=== PATIENT | male | born 1990 | race Caucasian/White ===

== ENCOUNTER 2019-09-24 15:44 | Inpatient (IN) | payer OTHER ==
[2019-09-24] MEDS ORDERED: ASPIRIN 325 MG TAB PO STA (16:21)
--- NOTE | 2019-09-24 16:21 | ED ---
General Adult HPI - General Chief complaint: Neuro Symptoms/Deficit Stated complaint: numbness in right side Time Seen by Provider: 09/24/19 15:47 Source: patient, EMS, RN notes reviewed, old records reviewed (Reviewed records from [facility]) Mode of arrival: EMS Limitations: no limitations - History of Present Illness Initial comments: Patient is a pleasant 28-year-old male presenting to the emergency Department with complaints of paresthesias. Patient states symptoms started close to 2 weeks ago and were minimal on a couple of fingers of his right hand and toes of his right foot. Patient states yesterday symptoms started to progress. Patient states there is tingling stash cold sensation up to his right forearm and up to his right ankle. He should also has some symptoms of the right side of his face. Patient did go to [facility] and had computed tomography scan of his head and neck done. Patient was transferred here for neurology evaluation. They did discuss case with Dr. Retana who did accept case however patient was sent to emergency department secondary to no beds in the hospital. Patient is questionable if there may be some mild generalized weakness. Review of Systems ROS Statement: Those systems with pertinent positive or pertinent negative responses have been documented in the HPI. ROS Other: All systems not noted in ROS Statement are negative. Constitutional: Denies: fever Eyes: Denies: eye pain ENT: Denies: ear pain Respiratory: Denies: dyspnea Cardiovascular: Denies: chest pain Endocrine: Reports: fatigue Gastrointestinal: Denies: abdominal pain Genitourinary: Denies: dysuria Musculoskeletal: Denies: back pain Skin: Denies: rash Neurological: Reports: as per HPI, paresthesias Past Medical History Past Medical History: No Reported History, Asthma Additional Past Medical History / Comment(s): Seizure at age 12/treated with Keppra x1 year. History of Any Multi-Drug Resistant Organisms: None Reported Past Surgical History: Appendectomy, Ear Surgery, Tonsillectomy Additional Past Surgical History / Comment(s): Left ankle pins. Past Psychological History: No Psychological Hx Reported Smoking Status: Never smoker Past Alcohol Use History: Occasional Past Drug Use History: Marijuana General Exam Limitations: no limitations General appearance: alert, in no apparent distress Head exam: Present: normocephalic Eye exam: Present: normal appearance, PERRL, EOMI ENT exam: Present: normal oropharynx Neck exam: Present: normal inspection Respiratory exam: Present: normal lung sounds bilaterally Cardiovascular Exam: Present: regular rate, normal rhythm GI/Abdominal exam: Present: soft. Absent: tenderness Extremities exam: Present: normal inspection Neurological exam: Present: alert, oriented X3, CN II-XII intact (Except possible decreased sensation right maxillary region.). Absent: motor sensory deficit Expanded Neurological exam: Present: protecting the airway Speech: Present: fluid speech Cranial nerves: EOM's Intact: Normal, Facial Sensation: Abnormal Right (Patient states there may be some slight decreased sensation right maxillary region) Cerebellar function: Finger to Nose: Normal Sensory exam: Upper Extremity Light Touch: Normal, Lower Extremity Light Touch: Normal Motor strength exam: RUE: 5, LUE: 5, RLE: 5, LLE: 5 Eye Response: (4) open spontaneously Motor Response: (6) obeys commands Verbal Response: (5) oriented Psychiatric exam: Present: normal affect, normal mood Skin exam: Present: normal color Course Vital Signs 09/24/19 09/24/19 15:53 16:01 Temperature 98.4 F 98.4 F Pulse Rate 95 95 Respiratory 18 18 Rate Blood Pressure 142/96 142/96 O2 Sat by Pulse 97 97 Oximetry Medical Decision Making - Medical Decision Making Case was discussed with Dr. Retana who confirms he did accept transfer and will admit patient. He will come evaluate. Patient will need to be seen by neurology for paresthesias versus mild sensory changes. Disposition Clinical Impression: Paresthesia Disposition: ADMITTED IP TO THIS [facility] Is patient prescribed a controlled substance at d/c from ED?: No Referrals: None,Stated [Primary Care Provider] - 1-2 days Decision Time: 16:21
[2019-09-24] MEDS: SODIUM CHLORIDE 0.9% 1,000 ML IV SCH (16:56)
--- NOTE | 2019-09-24 17:51 | P.HPIM ---
History of Present Illness This is a pleasant 28-year-old gentleman came in with complaints of tingling and numbness has been going on in the right fifth finger and dry 52 for about couple weeks and his tingling numbness numbness in the to extended up to the right ankle and in the hand extending up to the elbow along with some tingling numbness on the right side of the face involving V2 and V3 segments of the trigeminal nerve area. Patient denied any nausea vomiting headache seizure-like activity denied any history of migraine. Denied any other weakness photophobia denied any nuchal rigidity, neck pain denied any fever or flulike symptoms. Patient also felt short of breath upon ambulation although he saturating 100% at this time be tachycardic but probably not abnormal for his size. Around 100 sinus tachycardia Review of Systems REVIEW OF SYSTEMS: CONSTITUTIONAL: No fever, no malaise, no fatigue. HEENT: No recent visual problems or hearing problems. Denied any sore throat. CARDIOVASCULAR: No chest pain, orthopnea, PND, no palpitations, no syncope. PULMONARY: No shortness of breath, no cough, no hemoptysis. GASTROINTESTINAL: No diarrhea, no nausea, no vomiting, no abdominal pain. NEUROLOGICAL: No headaches, no weakness. HEMATOLOGICAL: Denies any bleeding or petechiae. GENITOURINARY: Denies any burning micturition, frequency, or urgency. MUSCULOSKELETAL/RHEUMATOLOGICAL: Denies any joint pain, swelling, or any muscle pain. ENDOCRINE: Denies any polyuria or polydipsia. The rest of the 14-point review of systems is negative. Past Medical History Past Medical History: No Reported History, Asthma Additional Past Medical History / Comment(s): Seizure at age 12/treated with Keppra x1 year. History of Any Multi-Drug Resistant Organisms: None Reported Past Surgical History: Appendectomy, Ear Surgery, Tonsillectomy Additional Past Surgical History / Comment(s): Left ankle pins. Past Psychological History: No Psychological Hx Reported Smoking Status: Never smoker Past Alcohol Use History: Occasional Past Drug Use History: Marijuana Medications and Allergies Home Medications Medication Instructions Recorded Confirmed Type No Known Home Medications 09/24/19 09/24/19 History Allergies Allergy/AdvReac Type Severity Reaction Status Date / Time cefaclor [From Ceclor] Allergy Rash/Hives Verified 09/24/19 17:12 clarithromycin [From Biaxin] AdvReac Nausea & Verified 09/24/19 17:12 Vomiting Physical Exam Vitals: Vital Signs Temp Pulse Resp BP Pulse Ox 09/24/19 17:01 101 H 18 147/85 98 09/24/19 16:01 98.4 F 95 18 142/96 98 09/24/19 15:53 98.4 F 95 18 142/96 97 Intake and Output 09/24/19 09/24/19 09/24/19 06:59 14:59 22:59 Other: Weight 185.973 kg PHYSICAL EXAMINATION: GENERAL: The patient is alert and oriented x3, not in any acute distress. Morbidly obese HEENT: Pupils are round and equally reacting to light. EOMI. No scleral icterus. No conjunctival pallor. Normocephalic, atraumatic. No pharyngeal erythema. No thyromegaly. CARDIOVASCULAR: S1 and S2 present. No murmurs, rubs, or gallops. PULMONARY: Chest is clear to auscultation, no wheezing or crackles. ABDOMEN: Soft, nontender, nondistended, normoactive bowel sounds. No palpable organomegaly. MUSCULOSKELETAL: No joint swelling or deformity. EXTREMITIES: No cyanosis, clubbing, or pedal edema. NEUROLOGICAL: Gross neurological examination did not reveal any focal deficits. SKIN: No rashes. Assessment and Plan Plan: -Tingling and numbness in the above-mentioned areas: Symptomatology is not really consistent with hannah sensory stroke, possibly of emesis is also extremely low neurology will be consulted will do the stroke workup patient will be continued on aspirin will also obtain lipid panel carotid Doppler and echocardiogram leave the decision of MRI to neurology although etiology of his symptoms is not clear at this time -Obesity: Counseling was provided with also rule out hyperlipidemia -Symptoms of shortness of breath saturating well 100% although bit tachycardic tachycardias with obesity and also a TSH level for tomorrow his symptoms of shortness of breath at this time resolved with the subjective symptoms are probably related to anxiety. -DVT prophylaxis early ambulation
--- NOTE | 2019-09-24 17:51 | US ---
EXAMINATION TYPE: US carotid duplex BILAT DATE OF EXAM: 09/24/2019 COMPARISON: NONE CLINICAL HISTORY: Stenosis. right facial, arm and foot numbness, no h/o stroke EXAM MEASUREMENTS: RIGHT: Peak Systolic Velocity (PSV) cm/sec ----- Right CCA: 78.8 ----- Right ICA: 65.2 ----- Right ECA: 60.3 ICA/CCA ratio: 0.8 RIGHT: End Diastole cm/sec ----- Right CCA: 22.1 ----- Right ICA: 27.5 ----- Right ECA: 14.7 LEFT: Peak Systolic Velocity (PSV) cm/sec ----- Left CCA: 74.4 ----- Left ICA: 100.4 ----- Left ECA: 96.2 ICA/CCA ratio: 1.3 LEFT: End Diastole cm/sec ----- Left CCA: 23.8 ----- Left ICA: 49.8 ----- Left ECA: 10.7 VERTEBRALS (direction of flow): Right Vertebral: Antegrade Left Vertebral: Antegrade Rhythm: Normal Mild homogeneous plaque with no significant stenosis seen IMPRESSION: There is antegrade flow in the vertebral arteries. The images and measurements suggest less than 10% stenosis in both internal carotid arteries. Criteria for Assigning % of Stenosis / Diameter reduction (Estimation based on the indirect measurements of the internal carotid artery velocities (ICA PSV). 1. Normal (no stenosis)=ICA PSV < 125 cm/s: ratio < 2.0: ICA EDV<40 cm/s. 2. Less than 50% stenosis=ICA PSV < 125 cm/s: ratio < 2.0: ICA EDV<40 cm/s. 3. 50 to 69% stenosis=ICA PSV of 125 to 230 cm/s: ration 2.0 ? 4.0: ICA EDV 40-100 cm/s. 4. Greater than 70% stenosis to near occlusion= ICA PSV > 230 cm/s: ratio > 4.0: ICA EDV > 100 cm/s. 5. Near occlusion= ICA PSV velocities may be low or undetectable: variable ratio and ICA EDV. 6. Total occlusion=unable to detect flow.
[2019-09-25] MEDS: SODIUM CHLORIDE 0.9% 1,000 ML IV SCH ×2 (04:29→15:56)
[2019-09-25] MEDS ORDERED: ASPIRIN 325 MG TAB PO SCH (09:00)
--- NOTE | 2019-09-25 10:25 | P.CNNES ---
History of Present Illness Consult date: 09/24/19 Requesting physician: Bam Shelton Reason for Consult: Right-sided paresthesia, evaluate for sensory deficits History of Present Illness: Patient is a 28-year-old male, otherwise healthy, states that about 2 weeks ago he developed tingling in the right little finger and tip of the right ring finger. The symptoms persisted. On 09/19/2019, patient developed numbness of the big toe of the right foot. Just yesterday in the afternoon, the whole right foot became numb, and the right hand also got affected all the way to the elbow with numbness and tingling. He also noticed right side of the face and chin to the head felt numb. His symptoms got worse this morning therefore he decided to come to the ER. He also feels cold sensation in the right arm and leg. Patient denies any weakness of his right arm or right leg or any problem with the balance. Patient denies any history of diabetes, no alcohol or tobacco and drinks alcohol very rarely. Patient's paternal grandfather was diagnosed with neuropathy in the feet, but was related to back issues. No family history of MS. Patient denies any symptoms of transient neurological deficits like optic neuritis, vertigo. He states that about 2 years ago he noticed some weakness in the legs bilaterally, that lasted for a couple days. There was no numbness or tingling with it. He attributed the weakness to performing a lot of training at the gym. The symptoms went away. Review of Systems Completely unremarkable, except as above. Denies any chest pain, problem with the vision was so sore throat dysphagia. Denies any nausea vomiting diarrhea, shortness of breath. Patient does have mild occasional low back pain but without any radiation. Denies any problem with bowel or bladder control. Past Medical History Past Medical History: No Reported History, Asthma Additional Past Medical History / Comment(s): Seizure at age 12/treated with Keppra x1 year. History of Any Multi-Drug Resistant Organisms: None Reported Past Surgical History: Appendectomy, Ear Surgery, Tonsillectomy Additional Past Surgical History / Comment(s): Left ankle pins. Past Psychological History: No Psychological Hx Reported Smoking Status: Never smoker Past Alcohol Use History: Occasional Past Drug Use History: Marijuana Medications and Allergies Home Medications Medication Instructions Recorded Confirmed Type No Known Home Medications 09/24/19 09/24/19 History Allergies Allergy/AdvReac Type Severity Reaction Status Date / Time cefaclor [From Ceclor] Allergy Rash/Hives Verified 09/24/19 17:12 clarithromycin [From Biaxin] AdvReac Nausea & Verified 09/24/19 17:12 Vomiting Physical Examination - Vital Signs Vital Signs: Vital Signs Temp Pulse Resp BP Pulse Ox 09/24/19 17:01 101 H 18 147/85 98 09/24/19 16:01 98.4 F 95 18 142/96 98 09/24/19 15:53 98.4 F 95 18 142/96 97 Intake and Output 09/24/19 09/24/19 09/24/19 06:59 14:59 22:59 Other: Weight 185.973 kg On examination patient is a young male, in no distress. Patient is mild to moderately obese. Patient's mental status, speech and language functions are normal. Attention and concentration fund of knowledge is adequate. On cranial nerve examination pupils are round and reacting to light, visual hannah are full, extraocular muscles are intact with no nystagmus. Face is symmetric and tongue protrudes the midline. Palatal elevation sensation normal. On muscle strength testing patient has a right pronation, no drift. The strength is completely normal in the arms and legs distally and proximally. Reflexes are 2 in the upper limbs, 2+ at the knees, 1+ ankles and plantars are downgoing. Sensory to temperature was slightly decreased in the left side of the face and left arm but was equal in the legs. Sensory to touch revealed tingling sensation in the right side of the face and arm. No ataxia for [id number] testing. Tone and bulk of muscles normal. No carotid bruit or murmur, peripheral pulses present. Assessment and Plan Assessment: * 28-year-old male admitted with numbness, paresthesias involving right side of the body. Started out with symptoms in the right little finger 2 weeks ago but now has progressed to involve the right arm, right foot and right side of the face. Examination only shows slight sensory disturbance. Rule out demyelinating disease, like multiple sclerosis, given young age. Plan: * Patient will undergo MRI of the brain with and without contrast to evaluate for demyelinating disease like MS. * We will check B12, folate, MMA, Lyme, GLADIS, vitamin D, vitamin B6. * Further management will be based upon MRI results.
--- NOTE | 2019-09-25 11:43 | MR ---
EXAMINATION TYPE: MR brain wo/w con DATE OF EXAM: 09/25/2019 COMPARISON: 09/24/2019 CT brain HISTORY: Numbness,? Possible MS CONTRAST: Performed utilizing 20 mL intravenous Gadavist gadolinium contrast. TECHNIQUE: Multiplanar, multisequence imaging of the brain is performed on a 3.0 Natalia magnet. Demye linating disease protocol with additional Sagittal Flair sequence is performed. Study is performed wi thin 24 hours of arrival to the hospital. FINDINGS: T2 White Matter Lesions Present : Yes Approximate Number of Lesions: Approximately 5 Locations Identified : Right periventricular, left thalamus, bilateral centrum semiovale Size of Largest Lesion(s): 1. 1.0 x 0.8 x 1.1 cm. Location: Right periventricular Sequence 501 Image 22 (axial) and Sequence 60 1 Image 25 (sagittal). 2. 0.5 x 0.7 x 1.2 cm. Location: Left thalamus Sequence 501 Image 18 (axial) and Sequence 601 Image 13 (sagittal). This is the acute signal change. This has some central contents enhancement. Enhancing Lesion(s) Present: Yes reference lesion number 2 delineated above. Change from Prior: White matter changes are identified on the MRI is not apparent on the CT examinati on. Diffusion-weighted imaging is performed. There is some hyperintensity posterior to the posterior machado b of the internal capsule within the left thalamus compatible with acute ischemic changes. Ventricles and sulci are appropriate for the patient age. There are no abnormal extra-axial fluid collections. The ventricular system and cisternal spaces are normal in size and appearance. The brain volume is age appropriate. The craniocervical junction frankie ears within normal limits. The dural venous sinuses appear patent. No additional areas of abnormal enhancement are evident.. The visualized sinuses are clear. Visualiz ed orbits are unremarkable. IMPRESSION: 1. There is an area of increased signal on diffusion which has some central enhancement on postcontr ast imaging in the left thalamus. Differential diagnosis could include acute ischemic changes as well as active gliosis. Vascular anomaly and mass are considered less likely. Short-term follow-up with [facility] with contrast in one month is recommended. Correlate with the patient's clinical symptoms.
[2019-09-25 14:18] LABS: Hemoglobin A1C 5.7 % (4.0-6.0)
--- NOTE | 2019-09-25 14:27 | P.PN ---
Subjective 28-year-old gentleman came in with complaints of tingling and numbness has been going on in the right fifth finger and dry 52 for about couple weeks and his tingling numbness numbness in the to extended up to the right ankle and in the hand extending up to the elbow along with some tingling numbness on the right side of the face involving V2 and V3 segments of the trigeminal nerve area. Patient denied any nausea vomiting headache seizure-like activity denied any history of migraine. Denied any other weakness photophobia denied any nuchal ri gidity, neck pain denied any fever or flulike symptoms. Patient also felt short of breath upon ambulation although he saturating 100% at this time be tachycardic but probably not abnormal for his size. Around 100 sinus tachycardia. 09/25/2019 Patient had an MRI which showed some lesions which are suspicious for multiple sclerosis had a lesion in the left thalamus which keep which explains some of his symptoms in the right side of the face and in the right hand. Suspicion for CVAs extremely low rest of the workup for cerebro vascular accident is within normal limits without any significant abnormality. She will need LP looking for oligoclonal banding for confirmation of multiple sclerosis. And patient will be started on high-dose systemic steroids. Constitutional: Denied any fatigue denied any fever. Cardio vascular: denied any chest pain, palpitations Gastrointestinal denied any nausea vomiting Pulmonary: Denied any shortness of breath cough Neurologic patient still has tingling in the right hand and right leg but feet tingling on the face has improved. All inpatient medications were reviewed and appropriate changes in these medications as dictated in the interval history and assessment and plan. Objective - Vital Signs Vital signs: Vital Signs Temp 97.7 F 09/25/19 07:53 Pulse 102 H 09/25/19 12:00 Resp 18 09/25/19 12:00 BP 148/95 09/25/19 12:00 Pulse Ox 96 09/25/19 12:00 Intake & Output 09/24/19 09/25/19 09/25/19 18:59 06:59 18:59 Intake Total 1220 800 Balance 1220 800 Weight 185.973 kg 188.4 kg Intake: Intake, IV Titration 1100 800 Amount Sodium Chloride 0.9% 1, 1100 800 000 ml @ 100 mls/hr IV . Q10H [facility] Rx#:[id number] Oral 120 Other: Voiding Method Toilet Toilet # Voids 2 - Exam PHYSICAL EXAMINATION: GENERAL: The patient is alert and oriented x3, not in any acute distress. Well developed, well nourished. HEENT: Pupils are round and equally reacting to light. EOMI. No scleral icterus. No conjunctival pallor. Normocephalic, atraumatic. No pharyngeal erythema. No thyromegaly. CARDIOVASCULAR: S1 and S2 present. No murmurs, rubs, or gallops. PULMONARY: Chest is clear to auscultation, no wheezing or crackles. ABDOMEN: Soft, nontender, nondistended, normoactive bowel sounds. No palpable organomegaly. MUSCULOSKELETAL: No joint swelling or deformity. EXTREMITIES: No cyanosis, clubbing, or pedal edema. NEUROLOGICAL: Gross neurological examination did not reveal any focal deficits. SKIN: No rashes. - Labs Labs: Abnormal Lab Results - Last 24 Hours (Table) 09/25/19 Range/Units 05:37 LDL Cholesterol, Calc 106 H (0-99) mg/dL HDL Cholesterol 34 L (40-60) mg/dL Assessment and Plan Plan: -Tingling and numbness in the above-mentioned areas: Symptomatology is not really consistent with pure sensory stroke, probability of multiple cirrhosis cannot be ruled out patient will be started on high-dose steroids rest of the workup including carotid Doppler and echocardiogram are all within normal limits MRI showed multiple areas of demyelination. Specifically in the left thalamus. -Obesity: Counseling was provided -Symptoms of shortness of breath saturating well 100% although bit tachycardic tachycardias with obesity and also a TSH level for tomorrow his symptoms of shortness of breath at this time resolved with the subjective symptoms are probably related to anxiety. -DVT prophylaxis early ambulation
--- NOTE | 2019-09-25 14:27 | P.PN ---
Subjective Progress Note Date: 09/25/19 Patient is laying comfortably in the bed. Offers no new complaints. States right sided symptoms are still the same. Objective - Vital Signs Vital signs: Vital Signs Temp 97.7 F 09/25/19 07:53 Pulse 102 H 09/25/19 12:00 Resp 18 09/25/19 12:00 BP 148/95 09/25/19 12:00 Pulse Ox 96 09/25/19 12:00 Intake & Output 09/24/19 09/25/19 09/25/19 18:59 06:59 18:59 Intake Total 1220 800 Balance 1220 800 Weight 185.973 kg 188.4 kg Intake: Intake, IV Titration 1100 800 Amount Sodium Chloride 0.9% 1, 1100 800 000 ml @ 100 mls/hr IV . Q10H [facility] Rx#:[id number] Oral 120 Other: Voiding Method Toilet Toilet # Voids 2 - Exam No change. - Labs Labs: Abnormal Lab Results - Last 24 Hours (Table) 09/25/19 Range/Units 05:37 LDL Cholesterol, Calc 106 H (0-99) mg/dL HDL Cholesterol 34 L (40-60) mg/dL Assessment and Plan Assessment: * Probable multiple sclerosis Plan: * MRI of the brain with and without contrast revealed multiple areas of FLAIR signal abnormality in bihemispheric region, around 5 of them. There is an area of acute contrast enhancement in the left thalamic region, consistent with acute demyelination. Apparently the left thalamic lesion appears to be positive on DWI, with hypointensity on ADC map, suggestive of some ischemia, probably related to intense demyelination. Overall clinical features, and MRI findings are highly suggestive of multiple sclerosis. * Await B12, folate, MMA, Lyme, GLADIS, vitamin D, vitamin B6. * Hemoglobin A1c 5.7, TSH normal, total cholesterol 161, LDL 106, HDL 34 and triglycerides 104. * Discussed with patient about lumbar puncture to check for oligoclonal bands, to have further evidence of multiple sclerosis. Patient wants to think about it and discuss with his family. * We will start Solu-Medrol 1 g IV PB daily for 3-5 days. Patient will be started on Pepcid for gastric ulcer prophylaxis.
[2019-09-25] MEDS: methylPREDNISolone SOD SUCC 1,000 MG in SODIUM CHLORIDE 0.9% 250 ML IVPB SCH (15:56)
--- NOTE | 2019-09-25 19:34 | ECHOF ---
Referral Reason:Thrombus MEASUREMENTS -------- HEIGHT: 182.9 cm WEIGHT: 188.2 kg BP: 127/78 IVSd: 1.3 cm (0.6 - 1.1) LVIDd: 4.7 cm (3.9 - 5.3) LVPWd: 1.2 cm (0.6 - 1.1) IVSs: 1.5 cm LVIDs: 3.6 cm LVPWs: 1.4 cm LA Diam: 3.7 cm (2.7 - 3.8) RVIDd: 3.4 cm (< 3.3) Ao Diam: 3.6 cm (2.0 - 3.7) AV Cusp: 2.1 cm (1.5 - 2.6) EPSS: 0.5 cm MV E Lázaro: 0.77 m/s MV DecT: 148 ms MV A Lázaro: 0.63 m/s MV E/A Ratio: 1.22 RAP: 5.00 mmHg RVSP: 16.77 mmHg MV EF SLOPE: 130.20 mm/s (70 - 150) MV EXCURSION: 22.65 mm (> 18.000) FINDINGS -------- Sinus rhythm. Morbid Obesity The left ventricular size is normal. There is mild concentric left ventricular hypertrophy. Overa ll left ventricular systolic function is normal with, an EF between 55 - 60 %. The right ventricle is normal in size. The left atrial size is normal. The right atrial size is normal. There is mild aortic valve sclerosis. There is no evidence of aortic regurgitation. Mild mitral annular calcification present. Mild mitral regurgitation is present. Mild tricuspid regurgitation present. Right ventricular systolic pressure is normal at < 35 mmHg. There is no evidence of pulmonary hypertension. The pulmonic valve was not well visualized. The aortic root size is normal. Echo free space represents a pericardial fat pad. CONCLUSIONS -------- 1. Sinus rhythm. 2. Morbid Obesity 3. The left ventricular size is normal. 4. There is mild concentric left ventricular hypertrophy. 5. Overall left ventricular systolic function is normal with, an EF between 55 - 60 %. 6. The right ventricle is normal in size. 7. The left atrial size is normal. 8. The right atrial size is normal. 9. There is mild aortic valve sclerosis. 10. Mild mitral annular calcification present. 11. Mild mitral regurgitation is present. 12. Mild tricuspid regurgitation present. 13. Right ventricular systolic pressure is normal at < 35 mmHg. 14. There is no evidence of pulmonary hypertension. 15. The pulmonic valve was not well visualized. 16. The aortic root size is normal. 17. Echo free space represents a pericardial fat pad. [employer] SUPERVISOR: Silva Rachel RDCS
[2019-09-25] MEDS: FAMOTIDINE 20 MG TAB PO SCH (21:12)
[2019-09-26] MEDS: SODIUM CHLORIDE 0.9% 1,000 ML IV SCH ×3 (01:40→18:45)
[2019-09-26] MEDS: methylPREDNISolone SOD SUCC 1,000 MG in SODIUM CHLORIDE 0.9% 250 ML IVPB SCH (08:14)
[2019-09-26] MEDS: FAMOTIDINE 20 MG TAB PO SCH ×2 (08:20→21:37)
[2019-09-26 09:36] LABS: HCT 45.7 % (39.0-53.0); HGB 14.9 gm/dL (13.0-17.5); MCH 27.8 pg (25.0-35.0); MCHC 32.7 g/dL (31.0-37.0); MCV 85.1 fL (80.0-100.0); Mean Platelet Volume 7.4; Platelet Count 310 k/uL (150-450); RBC 5.36 m/uL (4.30-5.90); RDW 12.7 % (11.5-15.5)
[2019-09-26 09:48] LABS: African American GFR (CKD) >90 (>60 ml/min/1.73 sqM); Anion Gap 10 mmol/L; Blood Urea Nitrogen 11 mg/dL (9-20); Calcium 9.5 mg/dL (8.4-10.2); Carbon Dioxide 23 mmol/L (22-30); Chloride 103 mmol/L (98-107); Glucose 177 mg/dL (74-99); Non-African American GFR(CKD) >90 (>60 ml/min/1.73 sqM); Potassium 4.7 mmol/L (3.5-5.1); Sodium 136 mmol/L (137-145)
--- NOTE | 2019-09-26 09:56 | P.PN ---
Subjective 28-year-old gentleman came in with complaints of tingling and numbness has been going on in the right fifth finger and dry 52 for about couple weeks and his tingling numbness numbness in the to extended up to the right ankle and in the hand extending up to the elbow along with some tingling numbness on the right side of the face involving V2 and V3 segments of the trigeminal nerve area. Patient denied any nausea vomiting headache seizure-like activity denied any history of migraine. Denied any other weakness photophobia denied any nuchal ri gidity, neck pain denied any fever or flulike symptoms. Patient also felt short of breath upon ambulation although he saturating 100% at this time be tachycardic but probably not abnormal for his size. Around 100 sinus tachycardia. 09/25/2019 Patient had an MRI which showed some lesions which are suspicious for multiple sclerosis had a lesion in the left thalamus which keep which explains some of his symptoms in the right side of the face and in the right hand. Suspicion for CVAs extremely low rest of the workup for cerebro vascular accident is within normal limits without any significant abnormality. She will need LP looking for oligoclonal banding for confirmation of multiple sclerosis. And patient will be started on high-dose systemic steroids. 09/26/2019 CSF analysis will be ordered along with fluoroscopy-guided lumbar puncture looking for oligoclonal bands for confirmation of multiple sclerosis. Patient is feeling better history has cecal some tingling and numbness now in the left leg. Rest of the lab numbness improved patient is on high-dose systemic steroids. Patient heart rate is bit higher because of his body habitus and systemic steroids patient is ambulatory because of which I do not believe patient will require to DVT prophylaxis. Constitutional: Denied any fatigue denied any fever. Cardio vascular: denied any chest pain, palpitations Gastrointestinal denied any nausea vomiting Pulmonary: Denied any shortness of breath cough Neurologic patient still has tingling in the right hand and right leg but feet tingling on the face has improved. All inpatient medications were reviewed and appropriate changes in these medications as dictated in the interval history and assessment and plan. Objective - Vital Signs Vital signs: Vital Signs Temp 97.8 F 09/26/19 07:35 Pulse 130 H 09/26/19 08:00 Resp 18 09/26/19 07:35 BP 138/87 09/26/19 07:35 Pulse Ox 98 09/26/19 07:35 Intake & Output 09/25/19 09/26/19 09/26/19 18:59 06:59 18:59 Intake Total 1140 800 Balance 1140 800 Weight 188.2 kg Intake: Intake, IV Titration 800 800 Amount Sodium Chloride 0.9% 1, 800 800 000 ml @ 100 mls/hr IV . Q10H FAYE Rx#:[id number] Oral 340 Other: Voiding Method Toilet Toilet Toilet # Voids 4 2 # Bowel Movements 1 - Exam PHYSICAL EXAMINATION: GENERAL: The patient is alert and oriented x3, not in any acute distress. Well developed, well nourished. HEENT: Pupils are round and equally reacting to light. EOMI. No scleral icterus. No conjunctival pallor. Normocephalic, atraumatic. No pharyngeal erythema. No thyromegaly. CARDIOVASCULAR: S1 and S2 present. No murmurs, rubs, or gallops. PULMONARY: Chest is clear to auscultation, no wheezing or crackles. ABDOMEN: Soft, nontender, nondistended, normoactive bowel sounds. No palpable organomegaly. MUSCULOSKELETAL: No joint swelling or deformity. EXTREMITIES: No cyanosis, clubbing, or pedal edema. NEUROLOGICAL: Gross neurological examination did not reveal any focal deficits. SKIN: No rashes. - Labs CBC & Chem 7: 09/26/19 08:53 09/26/19 08:53 Labs: Abnormal Lab Results - Last 24 Hours (Table) 09/26/19 09/26/19 Range/Units 08:53 08:53 WBC 12.0 H (3.8-10.6) k/uL Sodium 136 L (137-145) mmol/L Glucose 177 H (74-99) mg/dL Assessment and Plan Plan: -Tingling and numbness in the above-mentioned areas: Symptomatology is not really consistent with pure sensory stroke, probability of multiple cirrhosis cannot be ruled out patient will be started on high-dose steroids rest of the workup including carotid Doppler and echocardiogram are all within normal limits MRI showed multiple areas of demyelination. Specifically in the left thalamus. Ordered lumbar puncture and CSF analysis and oligoclonal banding for multiple sclerosis -Obesity: Counseling was provided -Symptoms of shortness of breath saturating well 100% although bit tachycardic tachycardias with obesity, TSH is within normal limits. Very low suspicion for pulmonary embolism -DVT prophylaxis early ambulation
[2019-09-26 11:45] LABS: Glucose,Whole Blood 139 mg/dL (75-99)
--- NOTE | 2019-09-26 12:05 | P.PN ---
Subjective Progress Note Date: 09/26/19 Patient is laying comfortably in the bed. Offers no new complaints. States right sided symptoms are better. Patient says the right facial numbness has significantly improved. The numbness and coldness of the right hand, forearm and right foot is still present, although less intense. Objective - Vital Signs Vital signs: Vital Signs Temp 97.8 F 09/26/19 07:35 Pulse 130 H 09/26/19 08:00 Resp 18 09/26/19 07:35 BP 138/87 09/26/19 07:35 Pulse Ox 98 09/26/19 07:35 Intake & Output 09/25/19 09/26/19 09/26/19 18:59 06:59 18:59 Intake Total 1140 800 230 Balance 1140 800 230 Weight 188.2 kg Intake: Intake, IV Titration 800 800 Amount Sodium Chloride 0.9% 1, 800 800 000 ml @ 100 mls/hr IV . Q10H FAYE Rx#:[id number] Oral 340 230 Other: Voiding Method Toilet Toilet Toilet # Voids 4 2 # Bowel Movements 1 - Exam Mental status, speech and language functions are normal. Cranial nerves are normal. Muscle strength is normal in the arms and legs. No ataxia. Sensory slightly decreased in the right arm and right foot.. - Labs CBC & Chem 7: 09/26/19 08:53 09/26/19 08:53 Labs: Abnormal Lab Results - Last 24 Hours (Table) 09/26/19 09/26/19 09/26/19 Range/Units 08:53 08:53 11:38 WBC 12.0 H (3.8-10.6) k/uL Sodium 136 L (137-145) mmol/L Glucose 177 H (74-99) mg/dL POC Glucose (mg/dL) 139 H (75-99) mg/dL Assessment and Plan Assessment: * Probable multiple sclerosis, new diagnosis Plan: * MRI of the brain with and without contrast revealed multiple areas of FLAIR signal abnormality in bihemispheric region, around 5 of them. There is an area of acute contrast enhancement in the left thalamic region, consistent with acute demyelination. Apparently the left thalamic lesion appears to be positive on DWI, with hypointensity on ADC map, suggestive of some ischemia, probably related to intense demyelination. Overall clinical features, and MRI findings are highly suggestive of multiple sclerosis. * Await B12, folate, MMA, Lyme. GLADIS negative, vitamin D and vitamin B6 4. We will start replacement. * Hemoglobin A1c 5.7, TSH normal, total cholesterol 161, LDL 106, HDL 34 and triglycerides 104. * Patient has agreed for lumbar puncture. Lumbar puncture under fluoroscopy was recommended. Patient apparently weighs beyond the limits had the fluoroscopy table can take. Would recommend anesthesia to do lumbar puncture, if possible. Patient will need probable longer, 5 inch needle to perform the lumbar puncture. * Continue Solu-Medrol 1 g IV PB daily for 3-5 days. * Dr. Barkley will be available on the weekend for any neurological questions.
[2019-09-26] MEDS: INSULIN ASPART (NovoLOG) 100 UNIT/ML VIAL SQ SCH ×3 (12:06→20:59)
[2019-09-26 16:50] LABS: Glucose,Whole Blood 131 mg/dL (75-99)
[2019-09-26] MEDS ORDERED: LORazepam 2 MG/ML INJ IV STA (17:05)
[2019-09-26] MEDS ORDERED: MORPHINE SULFATE 4 MG/ML SYRINGE IVP STA (17:05)
[2019-09-26] MEDS ORDERED: LIDOCAINE 1% INJ 10MG/ML (20 ML MDV) SQ ONE (17:08)
--- NOTE | 2019-09-26 17:43 | P.PCN ---
Date of Procedure: 09/26/19 Preoperative Diagnosis: rule out MS Postoperative Diagnosis: same Procedure(s) Performed: Lumbar Puncture Condition: stable Disposition: floor Indications for Procedure: Rule out MS Description of Procedure: Patient with parasthesia's, Neurology requesting LP at bedside. Risks, benefits, alternatives described in detail with patient and family, they are in agreement and signed consent. Sitting position on hospital bed Anesthesia: 2mg ativan and 4mg morphine plus 1% lidocaine 5cc L2/L3 level 22 g 5 inch spinal needle used after cleansing the area x3 with betadine, advanced with one attempt until csf was free flowing. NO opening pressure was checked as patient was in seated position, body habitus inhibits lateral decubitus and opening pressure. CSF was slow flowing, clear. Total of 8cc was collected and placed in tubes #1-4. Area cleaned and band aid placed. Asked patient and RN to lay flat for 2 hours. No complications Tubes given to RN labeled to send to pathology. Morgan Coronel MD Anesthesiologist
[2019-09-26 18:36] LABS: Glucose,CSF 107 mg/dL (40-70); Total Protein,CSF 40 mg/dL (12-60)
[2019-09-26 19:47] LABS: Appearance,CSF Clear; CSF Tube Number 4
[2019-09-26 19:48] LABS: Red Blood Cell,CSF 0 u/L (0-10)
[2019-09-26 19:51] LABS: Nucleated Cells, CSF 10 u/L (0-5)
[2019-09-26 19:53] LABS: Diff, Total Cells Cnt, CSF 100; Mononuclear WBC,CSF 100 %
[2019-09-26 20:40] LABS: Glucose,Whole Blood 266 mg/dL (75-99)
[2019-09-27 06:13] VITALS: RESP 16
[2019-09-27] MEDS: SODIUM CHLORIDE 0.9% 1,000 ML IV SCH (06:28)
[2019-09-27] MEDS: INSULIN ASPART (NovoLOG) 100 UNIT/ML VIAL SQ SCH (06:29)
[2019-09-27 06:31] LABS: Glucose,Whole Blood 124 mg/dL (75-99)
[2019-09-27] MEDS: methylPREDNISolone SOD SUCC 1,000 MG in SODIUM CHLORIDE 0.9% 250 ML IVPB SCH (09:06)
[2019-09-27] MEDS: FAMOTIDINE 20 MG TAB PO SCH (09:10)
[2019-09-27 10:34] LABS: Folate, Serum 8.5 ng/mL
--- NOTE | 2019-09-27 10:36 | P.DS ---
Providers Date of admission: 09/26/19 09:58 Attending physician: Teri Retana Consults: 09/24/19 16:24 Consult Physician Urgent Consulting Provider: Marcelo Saez Consult Reason/Comments: Right-sided paresthesia, evaluate for sensory deficit Do you want consulting provider notified?: Yes 09/26/19 10:06 Consult to Anesthesia Routine Consulting Provider: Anesthesia,Services Consult Reason/Comments: lumbar puncture for MS, xray unable to hold patient' s weight Primary care physician: Stated None Hospital Course: 28-year-old gentleman came in with complaints of tingling and numbness has been going on in the right fifth finger and dry 52 for about couple weeks and his tingling numbness numbness in the to extended up to the right ankle and in the hand extending up to the elbow along with some tingling numbness on the right side of the face involving V2 and V3 segments of the trigeminal nerve area. Patient denied any nausea vomiting headache seizure-like activity denied any history of migraine. Denied any other weakness photophobia denied any nuchal rigidity, neck pain denied any fever or flulike symptoms. Patient also felt short of breath upon ambulation although he saturating 100% at this time be tachycardic but probably not abnormal for his size. Around 100 sinus tachycardia. 09/25/2019 Patient had an MRI which showed some lesions which are suspicious for multiple sclerosis had a lesion in the left thalamus which keep which explains some of his symptoms in the right side of the face and in the right hand. Suspicion for CVAs extremely low rest of the workup for cerebro vascular accident is within normal limits without any significant abnormality. She will need LP looking for oligoclonal banding for confirmation of multiple sclerosis. And patient will be started on high-dose systemic steroids. 09/26/2019 CSF analysis will be ordered along with fluoroscopy-guided lumbar puncture looking for oligoclonal bands for confirmation of multiple sclerosis. Patient is feeling better history has cecal some tingling and numbness now in the left leg. Rest of the lab numbness improved patient is on high-dose systemic steroids. Patient heart rate is bit higher because of his body habitus and systemic steroids patient is ambulatory because of which I do not believe patient will require to DVT prophylaxis. 09/27/2019 Patient underwent lumbar puncture, CSF protein and glucose are within normal limits but that is elevated I blood cell count to 10 patient doesn't have any signs or symptoms of meningitis. 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 Patient will be discharged on steroids weaning doses along with the Pepcid. Neurologist is recommendingaspirin as well as possibility of stroke is extremely low but cannot be completely ruled out they're not recommending any statin at this time, awaiting B12 and folate levels if they're okay okay patient will be discharged today patient has low B6 level that will be replaced.she will need to follow up with the neurologist although patient doesn't have insurance analyst is working on that.he still has some tingling and numbness in the right hand. PHYSICAL EXAMINATION: GENERAL: The patient is alert and oriented x3, not in any acute distress. Well developed, well nourished. HEENT: Pupils are round and equally reacting to light. EOMI. No scleral icterus. No conjunctival pallor. Normocephalic, atraumatic. No pharyngeal erythema. No thyromegaly. CARDIOVASCULAR: S1 and S2 present. No murmurs, rubs, or gallops. PULMONARY: Chest is clear to auscultation, no wheezing or crackles. ABDOMEN: Soft, nontender, nondistended, normoactive bowel sounds. No palpable organomegaly. MUSCULOSKELETAL: No joint swelling or deformity. EXTREMITIES: No cyanosis, clubbing, or pedal edema. NEUROLOGICAL: Gross neurological examination did not reveal any focal deficits. SKIN: No rashes. Assessment and Plan Plan: -Tingling and numbness in the above-mentioned areas: Symptomatology is not really consistent with pure sensory stroke, probability of multiple cirrhosis cannot be ruled out patient will be started on high-dose steroids rest of the workup including carotid Doppler and echocardiogram are all within normal limits MRI showed multiple areas of demyelination. Specifically in the left thalamus. MS panel and CSF is pending. -Elevated blood sugars secondary to erosive high-dose systemic steroids hemoglobin A1c is not consistent with diabetes mellitus -Obesity: Counseling was provided -Symptoms of shortness of breath saturating well 100% although bit tachycardic tachycardias with obesity, TSH is within normal limits. Very low suspicion for pulmonary embolism Plan - Discharge Summary Discharge Rx Participant: No New Discharge Prescriptions: New Aspirin 81 mg PO DAILY #30 chewable predniSONE 10 mg PO DAILY #40 tab Pyridoxine [Vitamin B-6] 50 mg PO DAILY #30 tablet Discharge Medication List Aspirin 81 mg PO DAILY #30 chewable 09/27/19 [Rx] Pyridoxine [Vitamin B-6] 50 mg PO DAILY #30 tablet 09/27/19 [Rx] predniSONE 10 mg PO DAILY #40 tab 09/27/19 [Rx] Follow up Appointment(s)/Referral(s): Kobi Zamudio MD [REFERRING] - 1 Week (Primary physician referral - office requesting that you call for appointment. They will need you to fill out a new patient referral prior to seeing Dr. Zamudio. ) Lalita Rodriguez MD [Medical Doctor] - 1 Week Patient Instructions/Handouts: Paresthesia (ED), Magnetic Resonance Imaging (DC) Activity/Diet/Wound Care/Special Instructions: May need indigent funds at discharge - indigent fund form filled out and placed in chart - if needed at discharge send to pharmacy if patient unable to pay for his scripts. Discharge Disposition: HOME SELF-CARE
[2019-09-27 11:59] LABS: Glucose,Whole Blood 104 mg/dL (75-99)
[2019-09-27 12:00] VITALS: BP 104/91; PULSE 95; TEMP 98.1
== END 2019-09-27 13:22 | disposition home or self-care (01) | DRG 59 ==
LOC: EC 15:44 → 3SCARD 16:21 → OBSVTOIN 09-26 09:58
PROVIDERS: ADMIT Internal Medicine; ATTEND Internal Medicine
PROC: 009U3ZX Drainage of Spinal Canal, Percutaneous Approach, Diagnostic (ICD-10-PCS; principal; 2019-09-26)
DX: G35 Multiple sclerosis (principal); Z68.43 Body mass index [BMI] 50.0-59.9, adult; E66.9 Obesity, unspecified; Z71.3 Dietary counseling and surveillance; R73.9 Hyperglycemia, unspecified; T38.0X5A Adverse effect of glucocorticoids and synthetic analogues, initial encounter; R00.0 Tachycardia, unspecified; J45.909 Unspecified asthma, uncomplicated; F41.9 Anxiety disorder, unspecified; Z88.1 Allergy status to other antibiotic agents
CPT/HCPCS: 70553; 80048; 80061; 82306; 82607; 82746; 82945; 83036; 83921; 84157; 84207; 84443; 85027; 86038; 86618; 86780; 88108; 89050; 93306; 93880; 96360; 96361; 99285